=== PATIENT | male | born 1935 | race Caucasian/White ===

== ENCOUNTER 2024-01-27 06:02 | Day surgery (SDC) | payer OTHER, MEDICARE ==
[2024-01-23 09:33] LABS: Absolute Eosinophils 0.1 K/uL (0-0.5); Absolute Lymphocytes (CBC) 1.7 K/uL (0.7-4.9); Absolute Monocytes 0.9 K/uL (0.1-1.3); Absolute Neutrophil 6.8 K/uL (1.8-8.0); Basophils % 0.5 % (0-1.3); Hematocrit 53.3 % (39.6-49.0); Hemoglobin 17.5 g/dL (13.6-17.9); Lymphocytes % 17.6 % (15.3-44.8); MCH 33.3 pg (27.0-35.0); MCHC 32.9 g/dL (32.0-36.0); MCV 101.4 fL (80-100); MPV 8.8 fL (7.6-11.3); Monocytes % 9.8 % (3.3-12.3); Neutrophils % 71.1 % (41.7-73.7); Platelets 283 thou/uL (152-406); RBC Red Blood Cell Count 5.26 M/uL (4.33-5.43); Red Cell Distribution Width 15.1 % (12.1-15.2)
[2024-01-23 09:39] LABS: PT Prothrombin Time 11.6 SECONDS (9.4-12.5); PTT, Activated Partial Thromb 34.1 SECONDS (24.3-36.9); Protime INR 1.04
[2024-01-23 09:49] LABS: ALT/SGPT 21 U/L (16-61); Albumin 3.3 g/dL (3.4-5.0); Albumin/Globulin Ratio 0.8 (1.1-1.8); Alkaline Phosphatase 77 U/L (45-117); Anion Gap 6.1 mEq/L (5.0-15.0); BUN Blood Urea Nitrogen 12 mg/dL (7-18); Bicarbonate 28 mEq/L (21-32); Glomerular Filtration Rate 76 ml/min (=/>90); Glucose Level 145 mg/dL (74-106); Potassium 4.1 mEq/L (3.5-5.1); Protein, Total 7.3 g/dL (6.4-8.2); Sodium Level 139 mEq/L (136-145)
[2024-01-23 09:50] LABS: AST/SGOT < 10 U/L (15-37)
[2024-01-27] MEDS ORDERED: Ringers Lactate 1,000 ML IV ONE (06:24)
[2024-01-27] MEDS ORDERED: propofoL 200 MG/20 ML VIAL IV ONE ×2 (06:40→06:42)
[2024-01-27] MEDS ORDERED: ONDANSETRON 4 MG/2 ML VIAL ONE (06:40)
[2024-01-27] MEDS ORDERED: ROCURONIUM 50 MG/5 ML VIAL IV ONE (06:40)
[2024-01-27] MEDS ORDERED: LIDOCAINE 2% MPF 5 ML VIAL ONE (06:40)
[2024-01-27] MEDS ORDERED: dexAMETHasone 10 MG/ML VIAL ONE (06:40)
[2024-01-27] MEDS ORDERED: FENTANYL CITR 100 MCG/2 ML ONE (06:40)
[2024-01-27] MEDS: CEFAZOLIN SODIUM 2 GM/VIAL ONE (07:20)
[2024-01-27] MEDS ORDERED: Phenylephrine HCl 10 MG/ML 1 ML VIAL ONE (07:39)
[2024-01-27] MEDS ORDERED: LANO/MINERAL OIL/PETRO 3.5 GM ONE (07:39)
[2024-01-27] MEDS ORDERED: NS 0.9% VIAL 10 ML ONE (07:39)
[2024-01-27] MEDS: THROMBIN 5000 UNITS/VIAL TOP ONE (08:09)
[2024-01-27] MEDS ORDERED: KETOROLAC 30 MG/ML INJ ONE (08:20)
[2024-01-27] MEDS: DEPO-MEDROL 40 MG/ML IM ONE (08:24)
[2024-01-27] MEDS: VANCOMYCIN 1 GM/VIAL ONE (08:24)
[2024-01-27] MEDS ORDERED: Mastisol Adhesive Liq ONE (08:47)
[2024-01-27 09:34] VITALS: O2SAT 95
[2024-01-27] MEDS: HYDROCODONE/APAP 7.5/325 MG TAB ONE (10:09)
--- NOTE | 2024-01-27 10:21 | RAD REPORT ---
EXAM: Fluoroscopy use, Fluoroscopy <1 Hour HISTORY: LUMBAR DECOMPRESSION L4-L5 COMPARISON: None FINDINGS: A total of 3 images were sent to PACS, during a fluoroscopically guided lumbar decompressio n. No radiologist was involved in protocoling or performance of the study, and no radiologist was present for the duration of the procedure. No interpretation of the saved images will be provided. Total fluoroscopy time: 0 minutes. Cumulative dose: 2.01 mCi IMPRESSION: Documentation of fluoroscopy use as above.
[2024-01-27 12:11] VITALS: BP 135/80
[2024-01-27 12:13] VITALS: TEMP 97
== END 2024-01-27 10:55 | disposition home or self-care (01) ==
LOC: OR 06:02
PROVIDERS: ATTEND Orthopaedic Surgery
PROC: 01NB0ZZ Release Lumbar Nerve, Open Approach (ICD-10-PCS; principal; 2024-01-27 07:00)
DX: M48.062 Spinal stenosis, lumbar region with neurogenic claudication (principal); M54.9 Dorsalgia, unspecified; M47.816 Spondylosis without myelopathy or radiculopathy, lumbar region; I10 Essential (primary) hypertension; Z85.528 Personal history of other malignant neoplasm of kidney
CPT/HCPCS: 63047; 69990; 85025; 36415; 85610; 85730; 83036; 80053; A4216; J2704 ×2; J1010; J2371; J2001; J3010; J1100; J2405; J7120; 76000